=== PATIENT | female | born 1965 | race Caucasian/White ===

== ENCOUNTER 2017-06-14 14:50 | Emergency (ER) | payer OTHER ==
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
[2017-06-14] MEDS ORDERED: HYDROCODONE/APAP 5/325MG TABLET PO ONE (19:13)
[2017-06-14] MEDS ORDERED: NAPROXEN 250 MG TABLET PO ONE (19:13)
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
--- NOTE | 2017-06-15 13:40 | RADIOLOGY REPORT ---
EXAM: RIGHT SHOULDER, THREE VIEWS HISTORY: TRAUMA. PAIN. TECHNIQUE: AP internal and external rotation and transscapular Y-views of the right shoulder were obtained. FINDINGS: Note is made of mild acromioclavicular and glenohumeral degenerative change. No fracture or malalignment is seen. The soft tissues are unremarkable. IMPRESSION: MILD ACROMIOCLAVICULAR AND GLENOHUMERAL DEGENERATIVE CHANGE. NO ACUTE ABNORMALITY. JOB NUMBER: [id number] MTDD
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
== END 2017-06-14 19:31 | disposition home or self-care (01) ==
LOC: ER 14:50
DX: S16.1XXA Strain of muscle, fascia and tendon at neck level, initial encounter (principal); S40.012A Contusion of left shoulder, initial encounter; S00.03XA Contusion of scalp, initial encounter; S40.011A Contusion of right shoulder, initial encounter; R51 Headache; V83.6XXA Passenger of special industrial vehicle injured in nontraffic accident, initial encounter; Y92.59 Other trade areas as the place of occurrence of the external cause; Y99.0 Civilian activity done for income or pay
CPT/HCPCS: 70450; 72125; 99283; 99284